=== PATIENT | male | born 1970 ===

== ENCOUNTER 2018-05-11 09:30 | Inpatient (IN) | payer MEDICAID ==
[2018-05-04 11:03] VITALS: BMI 29.3
[2018-05-11] MEDS ORDERED: Gentamicin 160 MG in Sodium Chloride 0.9% 100 ML IVPB ONE (09:44)
[2018-05-11] MEDS ORDERED: Propofol 10 mg/ml Inj (20 ML) ONE ×2 (11:31→12:12)
[2018-05-11] MEDS ORDERED: Ciprofloxacin 400mg/200ml D5W 400 MG/200 ML BAG IVPB ONE (11:38)
[2018-05-11] MEDS ORDERED: Lactated Ringer's 1,000 ML IV SCH (13:15)
[2018-05-11] MEDS ORDERED: Lactated Ringer's 1,000 ML IV ONE (17:00)
[2018-05-11 19:53] VITALS: RESP 20
[2018-05-11] MEDS: Oxycodone/Acetaminophen 5/325 mg Tab PO PRN (20:44)
[2018-05-12] MEDS: Oxycodone/Acetaminophen 5/325 mg Tab PO PRN ×2 (04:38→13:11)
[2018-05-12] MEDS: Lactated Ringer's 1,000 ML IV SCH ×2 (05:58→11:58)
[2018-05-12 08:27] VITALS: O2SAT 96
[2018-05-12] MEDS ORDERED: Bisacodyl 5mg EC Tab PO ONE (09:00)
[2018-05-12 11:47] LABS: HEMOGLOBIN 15.1 g/dL (12.0-18.0); MEAN CELL VOLUME 86.7 fL (80.0-94.0); MEAN CORPUSCULAR HEMOGLOBIN 30.1 pg (27.0-31.0); MEAN CORPUSCULAR HGB CONC 34.7 g/dL (33.0-37.0); MEAN PLATELET VOLUME 9.5 fL (7.2-11.7); RBC 5.04 Mil/uL (4.40-5.90); RED CELL DISTRIBUTION WIDTH 13.6 % (11.5-14.5); WHITE BLOOD COUNT 11.3 K/uL (4.8-10.8)
[2018-05-12] MEDS ORDERED: Influenza Vaccine 60 MCG/0.5 ML SYR (3 yr & up) IM ONE (16:17)
[2018-05-12 16:43] VITALS: BP 117/70; PULSE 86; TEMP 98.8
--- NOTE | 2018-05-14 06:24 | OP ---
PROCEDURE DATE: 05/11/2018 PREOPERATIVE DIAGNOSES: Contracted bladder neck, elevated bladder neck, prostatic hypertrophy. PROCEDURES: Cystoscopy, dilatation and transurethral resection of prostate. SURGEON: Neva Solis MD DESCRIPTION OF PROCEDURE: While the patient in lithotomy position and after starting anesthesia, genitalia were prepped and draped in a sterile fashion. Cystoscopy revealed mild narrow area on the bulbous urethra. Prostate itself showed elevated bladder neck causing the elevation and obstruction of the prostate, bilateral lobe enlargement and mainly on the level of the bladder neck, trabeculated bladder. The bladder itself revealed no tumor, no stone. Bilateral trigone normal. Orifice within normal limits. Trabeculation 1 to 2+. After filling the bladder, the scope was removed. Urethra dilated with curved metal sound to 28. A #26 resectoscope sheath was inserted. Resection of the bladder neck was done to the level of the prostatic urethra. 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 A groove was made at 11 o'clock, another groove at 1 o'clock. Lateral tissue resected. There was no obstruction between the veru and the bladder neck. All tissues irrigated out. Some of the tissue in the floor was reached the fibrotic area. After irrigating all the tissue out and controlled the bleeding, the scope was removed and #22 three-way [place] was inserted. Irrigation was clear. The patient was transferred to the recovery room in stable condition. Neva Solis MD
== END 2018-05-12 16:30 | disposition home or self-care (01) | DRG 482 ==
LOC: C.9S 09:30 → EDSTATUS 11:30 → C.5S 19:32
PROVIDERS: ADMIT Specialist; ATTEND Specialist
PROC: 0T7D8ZZ Dilation of Urethra, Via Natural or Artificial Opening Endoscopic (ICD-10-PCS; 2018-05-11)
PROC: 0VT08ZZ Resection of Prostate, Via Natural or Artificial Opening Endoscopic (ICD-10-PCS; principal; 2018-05-11 11:30)
DX: C61 Malignant neoplasm of prostate (principal); N13.8 Other obstructive and reflux uropathy; N32.89 Other specified disorders of bladder; N40.1 Benign prostatic hyperplasia with lower urinary tract symptoms; N36.8 Other specified disorders of urethra